=== PATIENT | male | born 1945 | race Caucasian/White ===

== ENCOUNTER 2023-02-16 19:35 | Outpatient (REF) | payer MEDICARE, SELFPAY ==
[2023-02-16 20:19] LABS: Abs Immature Grans 0.02 10^3/uL (0.0-0.06); Absolute Basophil Count 0.03 10^3/uL (0.0-0.2); Absolute Eosinophil Count 0.12 10^3/uL (0.0-0.7); Absolute Lymphocyte Count 0.63 10^3/uL (1.2-3.4); Absolute Monocyte Count 0.75 10^3/uL (0.1-0.8); Absolute Neutrophil Count 5.33 10^3/uL (1.2-6.7); Basophils % 0.4; Eosinophils % 1.7; HCT 45.1 % (40.0-50.0); HGB 15.7 g/dL (13.5-17.5); Immature Grans % 0.3; Lymphocytes % 9.2; MCH 33.5 pg (27.0-33.0); MCHC 34.8 % (32.0-36.0); MCV 96 fL (80-95); MPV 10.7 fL (8.0-11.0); Monocytes % 10.9; Neutrophils % 77.5; Platelet Count 146 10^3/uL (130-400); RBC 4.68 10^6/uL (4.36-5.78); RDW 13.2 % (11.8-14.1); RDW-SD 46.5 fL; WBC 6.88 10^3/uL (4.4-10.8)
[2023-02-16 20:43] LABS: Hemoglobin A1C 6.8 % (<5.7)
[2023-02-16 20:58] LABS: ALT 29 U/L (16-63); AST 18 U/L (15-37); Albumin 3.9 g/dL (3.4-5.0); Alkaline Phosphatase 80 U/L (46-116); Anion Gap 9.7 mmol/L (3-11); BUN 27 mg/dL (7-18); Bilirubin, Total 0.6 mg/dL (0.2-1.0); CO2 26.3 mmol/L (21.0-32.0); CREATININE 0.9 mg/dL (0.70-1.30); Calcium 8.8 mg/dL (8.5-10.1); Chloride 104 mmol/L (98-107); Estimated GFR 86.88 (mL/min/1.73m2); Folate 7.6 ng/mL (8.6-20.0); Glucose 138 mg/dL (74-106); Potassium 4.2 mmol/L (3.5-5.1); Sodium 140 mmol/L (136-145); Total Protein 6.7 g/dL (6.4-8.2); Vitamin B12 191 pg/mL (193-986)
[2023-02-16 21:16] LABS: NT-proBNP 87 pg/mL (<300)
== END 2023-02-16 19:36 | disposition home or self-care (01) ==
LOC: NCHCN 19:35
PROVIDERS: PCP Orthopaedic Surgery; Visit Provider Family Medicine
DX: R73.03 Prediabetes (principal); I10 Essential (primary) hypertension; R60.9 Edema, unspecified
CPT/HCPCS: 80053; 82306; 82607; 82746; 83036; 83880; 85025

== ENCOUNTER 2023-05-19 08:54 | Outpatient (REF) | payer MEDICARE, SELFPAY ==
[2023-05-19 16:50] LABS: Calculated LDL 104 mg/dL (<100); Cholesterol 166 mg/dL (<200); HDL Cholesterol 51 mg/dL (40-60); Triglyceride 55 mg/dL (<150)
[2023-05-19 17:37] LABS: Hemoglobin A1C 6.2 % (<5.7)
== END 2023-05-19 08:55 | disposition home or self-care (01) ==
LOC: NCHCN 08:54
PROVIDERS: PCP Orthopaedic Surgery; Visit Provider Family Medicine
DX: E11.39 Type 2 diabetes mellitus with other diabetic ophthalmic complication (principal); E78.5 Hyperlipidemia, unspecified
CPT/HCPCS: 80061; 83036

== ENCOUNTER 2023-05-23 20:12 | Outpatient (REF) | payer MEDICARE, SELFPAY ==
[2023-05-23 22:24] LABS: COMMENT (LAB VIEW ONLY) 34.48 mg/dL; Microalb ug/mg Crea 21.2 ug/mg Cr
== END 2023-05-23 20:13 | disposition home or self-care (01) ==
LOC: NCHCN 20:12
PROVIDERS: PCP Orthopaedic Surgery; Visit Provider Family Medicine
DX: E11.9 Type 2 diabetes mellitus without complications (principal)
CPT/HCPCS: 82043; 82570

== ENCOUNTER 2024-04-16 18:25 | Outpatient (REF) | payer MEDICARE, SELFPAY ==
[2024-04-16 16:45] LABS: Anion Gap 10.3 mmol/L (3-11); BUN 16 mg/dL (7-18); CO2 24.7 mmol/L (21.0-32.0); CREATININE 0.9 mg/dL (0.70-1.30); Calcium 9.4 mg/dL (8.5-10.1); Chloride 101 mmol/L (98-107); Glucose 137 mg/dL (74-106); Potassium 4.4 mmol/L (3.5-5.1); Sodium 136 mmol/L (136-145)
[2024-04-16 16:51] LABS: COMMENT (LAB VIEW ONLY) 86.99 mg/dL; Microalb ug/mg Crea 14.9 ug/mg Cr
[2024-04-16 19:20] LABS: Hemoglobin A1C 6.4 % (<5.7)
== END 2024-04-16 18:26 | disposition home or self-care (01) ==
LOC: NCHCN 18:25
PROVIDERS: PCP Orthopaedic Surgery; Visit Provider Family Medicine
DX: I10 Essential (primary) hypertension (principal); E11.9 Type 2 diabetes mellitus without complications
CPT/HCPCS: 80048; 82043; 82570; 83036

== ENCOUNTER 2025-04-10 13:38 | Outpatient (REF) | payer MEDICARE, SELFPAY ==
[2025-04-10 21:12] LABS: ESR 55 mm/hr (0-20)
[2025-04-10 21:13] LABS: HCT 34.5 % (40.0-50.0); HGB 11.1 g/dL (13.5-17.5); MCH 29.8 pg (27.0-33.0); MCHC 32.2 % (32.0-36.0); MCV 93 fL (80-95); MPV 10.4 fL (8.0-11.0); Platelet Count 253 10^3/uL (130-400); RBC 3.72 10^6/uL (4.36-5.78); RDW 14.3 % (11.8-14.1); RDW-SD 48.5 fL; WBC 6.45 10^3/uL (4.4-10.8)
[2025-04-10 21:33] LABS: ALT 28 U/L (16-63); AST 22 U/L (15-37); Albumin 2.9 g/dL (3.4-5.0); Alkaline Phosphatase 79 U/L (46-116); Anion Gap 9.3 mmol/L (3-11); BUN 11 mg/dL (7-18); Bilirubin, Total 0.5 mg/dL (0.2-1.0); C-Reactive Protein 4.40 mg/dL (<or=0.5); CO2 25.7 mmol/L (21.0-32.0); Calcium 8.5 mg/dL (8.5-10.1); Chloride 102 mmol/L (98-107); Estimated GFR 92.00 (mL/min/1.73m2); Glucose 105 mg/dL (74-106); NT-proBNP 1026 pg/mL (<300); Potassium 4.3 mmol/L (3.5-5.1); Sodium 137 mmol/L (136-145); TSH (W/Ref FT4) 2.35 uIU/mL (0.36-3.74); Total Protein 6.6 g/dL (6.4-8.2)
== END 2025-04-10 13:39 | disposition home or self-care (01) ==
LOC: NCHCN 13:38
PROVIDERS: PCP Orthopaedic Surgery; Visit Provider Family Medicine
DX: R60.0 Localized edema (principal); M06.4 Inflammatory polyarthropathy; D64.9 Anemia, unspecified; E03.9 Hypothyroidism, unspecified
CPT/HCPCS: 80053; 85027; 85652; 83880; 84443; 86140

== ENCOUNTER 2025-05-05 16:16 | Outpatient (REF) | payer MEDICARE, SELFPAY ==
[2025-05-05 14:54] LABS: HCT 38.4 % (40.0-50.0); HGB 12.6 g/dL (13.5-17.5); MCH 30.2 pg (27.0-33.0); MCHC 32.8 % (32.0-36.0); MCV 92 fL (80-95); MPV 10.5 fL (8.0-11.0); Platelet Count 223 10^3/uL (130-400); RBC 4.17 10^6/uL (4.36-5.78); RDW 15.2 % (11.8-14.1); RDW-SD 51.4 fL; WBC 7.87 10^3/uL (4.4-10.8)
== END 2025-05-05 16:17 | disposition home or self-care (01) ==
LOC: NCHCN 16:16
PROVIDERS: PCP Orthopaedic Surgery; Visit Provider Family Medicine
DX: D64.9 Anemia, unspecified (principal)
CPT/HCPCS: 85027

== ENCOUNTER 2025-06-02 15:50 | Outpatient (REF) | payer MEDICARE, SELFPAY ==
[2025-06-02 14:50] LABS: HCT 42.5 % (40.0-50.0); HGB 13.7 g/dL (13.5-17.5); MCH 29.8 pg (27.0-33.0); MCHC 32.2 % (32.0-36.0); MCV 93 fL (80-95); MPV 9.9 fL (8.0-11.0); Platelet Count 204 10^3/uL (130-400); RBC 4.59 10^6/uL (4.36-5.78); RDW 16.5 % (11.8-14.1); RDW-SD 55.1 fL; WBC 7.95 10^3/uL (4.4-10.8)
[2025-06-02 15:16] LABS: Anion Gap 7.1 mmol/L (3-11); BUN 12 mg/dL (7-18); CO2 28.9 mmol/L (21.0-32.0); Calcium 9.5 mg/dL (8.5-10.1); Chloride 101 mmol/L (98-107); Estimated GFR 88.36 (mL/min/1.73m2); Glucose 139 mg/dL (74-106); Potassium 4.6 mmol/L (3.5-5.1); Sodium 137 mmol/L (136-145)
== END 2025-06-02 15:51 | disposition home or self-care (01) ==
LOC: NCHCN 15:50
PROVIDERS: PCP Orthopaedic Surgery; Visit Provider Family Medicine
DX: I48.91 Unspecified atrial fibrillation (principal)
CPT/HCPCS: 80048; 85027